=== PATIENT | female | born 1960 | race Hispanic/Latino ===

== ENCOUNTER 2017-09-07 07:44 | Day surgery (SDC) | payer OTHER ==
[2017-09-07 08:36] LABS: Basophils % (Auto) 0.7 % (0.0-1.8); Eosinophils % (Auto) 2.7 % (0.0-4.3); Hematocrit 40.9 % (30.3-42.9); Hemoglobin 13.8 gm/dl (10.1-14.3); Mean Corpuscular HGB Conc 34 % (30-34); Mean Corpuscular Hemoglobin 32 pg (28-32); Mean Corpuscular Volume 94 fl (79-97); Platelet Count 265 K/mm3 (140-440); Red Blood Count 4.34 M/mm3 (3.65-5.03); Red Cell Distribution Width 13.2 % (13.2-15.2); White Blood Count 6.8 K/mm3 (4.5-11.0)
[2017-09-07 08:51] LABS: INR 0.87 (0.87-1.13)
[2017-09-07 08:52] LABS: BUN/Creatinine Ratio 20; Blood Urea Nitrogen 14 mg/dL (7-17); Carbon Dioxide 24 mmol/L (22-30); Glucose 119 mg/dL (65-100)
[2017-09-07 08:53] LABS: Anion Gap 17 mmol/L; Chloride 103.3 mmol/L (98-107); Potassium 4.8 mmol/L (3.6-5.0); Sodium 139 mmol/L (137-145)
[2017-09-07] MEDS ORDERED: HEPARIN 10,000 UNITS/10 ML ONE (08:54)
[2017-09-07] MEDS ORDERED: HEPARIN/NS 5000 UNIT/500ML(CATH LAB) 1,000 ML IR ONE (08:54)
[2017-09-07] MEDS ORDERED: NITROGLYCERIN SYRINGE 0 ML ONE (08:55)
[2017-09-07] MEDS ORDERED: CALAN ONE (08:55)
[2017-09-07] MEDS ORDERED: XYLOCAINE 2% INFILTRATI ONE ×2 (08:55→09:33)
[2017-09-07] MEDS ORDERED: VERSED ONE (08:56)
[2017-09-07] MEDS ORDERED: SUBLIMAZE ONE (08:56)
[2017-09-07] MEDS ORDERED: NACL 0.9% 500 ML 500 ML IV SCH (09:00)
[2017-09-07] MEDS ORDERED: ECOTRIN PO ONE (09:04)
[2017-09-07] MEDS ORDERED: ULTRAM PO ONE (10:30)
--- NOTE | 2017-09-07 10:51 | Cardiac Catherization Report ---
CLINICAL INFORMATION: The patient is a 56-year-old white female with complaints of chest pain. Echocardiogram showed EF of around 55% to 60%. The patient has PET MPI performed on 05/12/2017, which showed hyperdynamic left ventricular and moderate sized mild predominantly fixed minimally reversible distal inferior inferoseptal perfusion defect. However, because of mildly abnormal MPI and persistent chest pains, she is scheduled for cardiac catheterization for definitive diagnosis and treatment. She has history of morbid obesity, hypertension, fibromyalgia, and thoracic spine and cervical spine problems with post laminectomy syndrome of the cervical reason. The patient was brought to the catheterization laboratory in a fasting condition after obtaining informed consent. The patient was brought to the catheterization laboratory in a fasting condition. Right wrist area and forearm thoroughly cleansed with Betadine solution. Sterile drapes were applied. Local anesthesia was achieved using 2% Xylocaine. Right radial artery puncture was made using 21-gauge arterial puncture needle. Subsequently, 5-Macanese sheath was introduced. The patient was sedated with IV Versed and fentanyl. A 5 mg of intra-arterial verapamil and 3000 units of intravenous heparin given. Subsequently, using 5-Macanese multipurpose catheter, left ventriculogram was performed in DRISCOLL projection using hand injection followed by left coronary angiograms in multiple views and right coronary angiograms in ENGLISH projection. At the end of the procedure, catheter and sheath were removed. Good hemostasis was achieved. Procedure was uncomplicated. Following findings were noted. HEMODYNAMICS: 1. Opening aortic pressure 135/73. Left ventricular pressure 135/14. No gradient across the aortic valve. Estimated ejection fraction 55%. 2. Left ventriculogram done in DRISCOLL projection showed normal sized left ventricle with normal contractility. End-diastolic and end systolic volumes are normal. Mitral regurgitation could not be evaluated because of limited amount of dye injected. 3. Right coronary artery nondominant vessel, arises normally from right coronary cusp and angiographically smooth and normal. 4. Left coronary artery arises normally from left coronary cusp. Left main is very short, normal. LAD, which curves around the apex and its branches, circumflex artery dominant vessel and its branches are angiographically smooth and normal. FINAL IMPRESSION: 1. Normal sized left ventricle with normal contractility . 2. Normal coronary anatomy. Left coronary system being dominant vessel. 3. Procedure was uncomplicated. Right radial artery was used for access. PLAN: At this time is to continue risk factor modification. Findings were explained to the patient and . JOB# [id number] VIRA/ELIZABETH WERNER
[2017-09-07 12:50] VITALS: BP 120/74
--- NOTE | 2017-09-07 16:16 | Short Stay Summary ---
Short Stay Documentation Date of service: 09/07/17 - History H&P: obtained from office - Allergies and Medications Current Medications: Allergies codeine Adverse Reaction (Verified 09/07/17 08:09) Vomiting,CONSTIPATION Home Medications Medication Instructions Recorded Confirmed Last Taken Type Beclomethasone Dipropionate [Qvar] 2 puff INHALATION DAILY 09/07/17 09/07/1707/16 History Estradiol [Climara] 0.1 mg TRANSDERMA 1XW 09/07/17 09/07/17 09/06/17 History Flexeril 10 MG TAB 10 mg PO QHS 09/07/17 09/07/17 09/06/17 History 10mg Gabapentin [Neurontin] 300 mg PO QHS 09/07/17 09/07/17 09/06/17 History Lisinopril [Zestril] 40 mg PO DAILY 09/07/17 09/07/17 09/06/17 History Metoprolol Tartrate [Metoprolol 25 mg PO BID 09/07/17 09/07/17 09/06/17 History Tartrate] Multivit,Stress Formula/Zinc 1 tab PO DAILY 09/07/17 09/07/17 09/06/17 History Spironolactone [Aldactone] 50 mg PO DAILY 09/07/17 09/07/17 09/06/17 History - Brief post op/procedure progress note Date of procedure: 09/07/17 Pre-op diagnosis: chest pain Post-op diagnosis: same Procedure: LHC - see cath report Anesthesia: local Estimated blood loss: none Condition: stable - Disposition Condition at discharge: Good Disposition: DC-01 TO HOME OR SELFCARE - Discharge Diagnoses (1) Chest pain Status: Chronic Qualifiers: Chest pain type: C Ischemic chest pain type: I (2) Abnormal stress test Status: Suspected (3) Hypertension Status: Chronic Qualifiers: Hypertension type: H (4) Morbid obesity Status: Chronic (5) Chronic pain Status: Chronic Qualifiers: Chronic pain type: C Short Stay Discharge Plan Activity: advance as tolerated Diet: low fat, low cholesterol, low salt Wound: open to air, keep clean and dry, per your surgeon's advice Follow up with: TANA AMATO MD [Staff Physician] - 7 Days Forms: CardCath PCI D/C Instructions
== END 2017-09-07 13:22 | disposition home or self-care (01) ==
LOC: CATHLABREC 07:44
PROVIDERS: ATTEND Internal Medicine
DX: R94.39 Abnormal result of other cardiovascular function study (principal); R07.9 Chest pain, unspecified; I10 Essential (primary) hypertension; M79.7 Fibromyalgia; M96.1 Postlaminectomy syndrome, not elsewhere classified; Z88.6 Allergy status to analgesic agent; E66.2 Morbid (severe) obesity with alveolar hypoventilation; Z68.42 Body mass index [BMI] 45.0-49.9, adult; Z98.890 Other specified postprocedural states; Z90.710 Acquired absence of both cervix and uterus
CPT/HCPCS: 36415; 80048; 85025; 85610; 85730; 93005; 93010; 93458; C1894; J1644; J2250; J3010; J7040; Q9967

== ENCOUNTER 2017-12-02 13:14 | Outpatient (CLI) | payer OTHER ==
--- NOTE | 2017-12-02 13:38 | XRay Report ---
LEFT SHOULDER: Shoulder pain. AP and Y views demonstrate normal bony and soft tissue structures with normal joint alignment of the shoulder. IMPRESSION: Normal study.
== END 2017-12-02 13:15 | disposition home or self-care (01) ==
LOC: SPVIMAG 13:14
PROVIDERS: ATTEND Orthopaedic Surgery
DX: M25.512 Pain in left shoulder (principal); I11.0 Hypertensive heart disease with heart failure; I50.9 Heart failure, unspecified; F41.9 Anxiety disorder, unspecified; Z87.891 Personal history of nicotine dependence